=== PATIENT | female | born 1940 | race Caucasian/White ===

== ENCOUNTER → 2016-09-23 | Outpatient (CLI) | payer MEDICARE, BC ==
[~2016-09-23] MED LIST: ASPIR 8181 MG PO; CALTRATE-600 D600 MG PO; DILANTIN DPS100 MG PO; DULCOLAX-DPS10 MG PR; KEPPRA DPS500 MG PO; KLOR-CON M2020 ME1 PO; LASIX DPS40 MG PO; MAALOX DPS30 ML PO; MILK OF MAGNESI10 ML PO; NEURONTIN DPS300 MG PO; PROTONIX40 MG PO; PROZAC DPS20 MG PO; SENOKOT S1 TAB PO; SYNTHROID DPS0.1 MG PO; THERAPEUTIC MUL1 TAB PO; TYLENOL DPS325 MG PO; VITAMIN D1000 UNI1 PO
== END | disposition home or self-care (01) ==
LOC: PTH.S 08:55
DX: M79.606 Pain in leg, unspecified (principal); M79.603 Pain in arm, unspecified; M79.89 Other specified soft tissue disorders; R20.0 Anesthesia of skin; G40.909 Epilepsy, unspecified, not intractable, without status epilepticus; Z86.73 Personal history of transient ischemic attack (TIA), and cerebral infarction without residual deficits